=== PATIENT | male | born 1955 | race Caucasian/White ===

== ENCOUNTER → 2024-10-31 | Outpatient (REF) | payer MEDICARE ==
[~2024-10-31] MED LIST: ATOR1TAB21 PO; LEVO150T7 PO; SPIR-10 PO
[2024-10-31 15:04] LABS: C REACTIVE PROTEIN QUANTITATIV 0.51 MG/DL (<1.0)
[2024-10-31 15:06] LABS: RHEUMATOID FACTOR QUANT < 3.5 IU/ML (<14)
== END ==
LOC: M LAB REF 14:05
PROVIDERS: ATTEND Nurse Practitioner Family
DX: M25.50 Pain in unspecified joint (principal)

== ENCOUNTER 2024-11-10 09:38 | Day surgery (SDC) | payer MEDICARE ==
[~2024-11-10] VITALS: Ht 185.4 cm; Wt 121.3 kg
[~2024-11-10 09:38] MED LIST changes: +LIDOCAINE 2% 100 MG/5 ML SDV (FOR ANES.) As Ordered ONE
[2024-11-10] MEDS ORDERED: METF-838 PO (10:07)
[2024-11-10] MEDS ORDERED: TUME1CAP PO (10:07)
[2024-11-10] MEDS ORDERED: CETI1TAB61 PO (10:07)
[2024-11-10] MEDS ORDERED: OCUVTAB4 PO (10:07)
[2024-11-10] MEDS ORDERED: OMEG12004 PO (10:07)
[2024-11-10 11:19] VITALS: TEMP 97.3
[2024-11-10 11:45] VITALS: BP 122/59; O2SAT 98
== END 2024-11-10 11:55 | disposition home or self-care (01) ==
LOC: M OPP 09:38
PROVIDERS: ATTEND Surgery
DX: Z12.11 Encounter for screening for malignant neoplasm of colon (principal); Z80.0 Family history of malignant neoplasm of digestive organs; Z79.899 Other long term (current) drug therapy

== ENCOUNTER → 2024-12-21 | Outpatient (CLI) | payer MEDICARE ==
[~2024-12-21] MED LIST changes: +CETI1TAB61 PO; -LIDOCAINE 2% 100 MG/5 ML SDV (FOR ANES.) As Ordered ONE; +METF-838 PO; +OCUVTAB4 PO; +OMEG12004 PO; +TUME1CAP PO
== END ==
LOC: M RAD 12:39
PROVIDERS: ATTEND Surgery
DX: K43.9 Ventral hernia without obstruction or gangrene (principal)

== ENCOUNTER → 2024-12-21 | Outpatient (CLI) | payer MEDICARE | LOC: M RAD 12:29 | PROVIDERS: ATTEND Nurse Practitioner Family | DX: R22.32 Localized swelling, mass and lump, left upper limb (principal) ==

== ENCOUNTER → 2025-01-25 | Outpatient (CLI) | payer MEDICARE | LOC: M RAD 10:56 | PROVIDERS: ATTEND Nurse Practitioner Family | DX: R22.32 Localized swelling, mass and lump, left upper limb (principal) ==

== ENCOUNTER → 2025-02-14 | Outpatient (CLI) | payer MEDICARE | LOC: M SLEEP 20:00 | PROVIDERS: ATTEND Physician Assistant | DX: G47.33 Obstructive sleep apnea (adult) (pediatric) (principal); R40.0 Somnolence ==

== ENCOUNTER → 2025-04-16 | Outpatient (CLI) | payer MEDICARE | LOC: M SLEEP 20:00 | PROVIDERS: ATTEND Physician Assistant | DX: G47.33 Obstructive sleep apnea (adult) (pediatric) (principal) ==